=== PATIENT | female | born 1965 | race Caucasian/White ===

== ENCOUNTER 2024-10-19 06:14 | Day surgery (SDC) | payer MEDICARE ==
[2024-10-19] MEDS ORDERED: Lactated Ringers 1,000 ML IV ONE (06:32)
[2024-10-19 06:42] VITALS: RESP 16
[2024-10-19] MEDS: Lactated Ringers 1,000 ML IV SCH (06:42)
[2024-10-19] MEDS ORDERED: propofoL IV ONE ×2 (07:52→08:41)
[2024-10-19] MEDS ORDERED: Xylocaine-Mpf 2% 5 Ml Vial ONE (08:03)
[2024-10-19 09:14] VITALS: TEMP 97.3; O2SAT 97
[2024-10-19 09:42] VITALS: BP 129/88; PULSE 62
--- NOTE | 2024-10-20 09:19 | OP ---
SURGERY DATE/TIME: 10/19/2024 [id number] PREOPERATIVE DIAGNOSES: 1) Screening colonoscopy. 2) Positive Cologuard. POSTOPERATIVE DIAGNOSIS: Colon polyps x8. PROCEDURE: Colonoscopy. SURGEON: Chuy Cadte MD ANESTHESIA: MAC by Blaze Richards CRNA. ESTIMATED BLOOD LOSS: Minimal. SPECIMEN: There is hot forceps polypectomy from the proximal sigmoid colon and distal sigmoid colon x3 and rectum x3, and then a hot snare polypectomy from the sigmoid colon at 25 cm scope depth. DESCRIPTION OF PROCEDURE AND FINDINGS: After informed written consent was obtained, the patient was taken to the endoscopy suite. She was placed in the left lateral decubitus position, then anesthesia was titrated to desired level of consciousness. Digital rectal exam showed normal sphincter tone and no internal lesions. Scope was inserted into the rectum and sequentially the entire colonic mucosa was traversed. Level of the cecum was reached and verified with direct visualization of the ileocecal valve. Upon withdrawal, there were some scattered diverticula noted, mostly in the sigmoid colon. Throughout the sigmoid colon, there were multiple polyps. Small sessile polyp in the proximal sigmoid grasped with the forceps, cauterized, and removed in its entirety, sent for pathology testing. In the distal sigmoid colon, there were 3 sessile polyps in close proximity, all grasped with the forceps, cauterized at their base, and sent in the same specimen container. At 25 cm, there was a slightly larger polypoid lesion. First it was grasped with the forceps, cauterized, and a small piece of it was removed. At that point, I elected to switch to a small snare and the lesion was encircled with a snare, grasped at the base, cauterized, and removed in its entirety with no bleeding and good removal. The lesion was retrieved in a polyp trap. Further down in the proximal rectum, there were 3 small polyps in very close proximity which were all grasped with forceps, cauterized, and removed in their entirety with good result. Prior to withdrawal, retroflexion was performed and showed no internal lesions. Scope was removed. The patient was transferred to the recovery room in good condition. She was advised to follow up in 1 week for pathology results.
== END 2024-10-19 09:40 | disposition home or self-care (01) ==
LOC: SDC 06:14
PROVIDERS: ATTEND Family Medicine
DX: Z12.11 Encounter for screening for malignant neoplasm of colon (principal); R19.5 Other fecal abnormalities; D12.7 Benign neoplasm of rectosigmoid junction; D12.5 Benign neoplasm of sigmoid colon